=== PATIENT | female | born 1945 | race Two or more races ===

== ENCOUNTER 2019-06-09 06:25 | Day surgery (SDC) | payer OTHER ==
[~2019-06-09] VITALS: Ht 162.6 cm; Wt 66.2 kg
[~2019-06-09 06:25] MED LIST: ADULT LOW DOSE81 M1 PO; GLUCOPHAGE XR500 MG; LYRICA100 MG PO; SYNTHROID50 MCG PO; ZETIA10 MG PO
== END 2019-06-09 19:05 | disposition home or self-care (01) ==
LOC: CIR.AMB 06:25
DX: K64.8 Other hemorrhoids (principal); K64.4 Residual hemorrhoidal skin tags